=== PATIENT | female | born 1970 | race Two or more races ===

== ENCOUNTER 2023-01-22 12:55 | Emergency (ER) | payer BC, OTHER ==
[~2023-01-22] VITALS: Ht 172.7 cm; Wt 122.7 kg
[2023-01-22 13:27] VITALS: PULSE 90; RESP 18; O2SAT 99
[2023-01-22] MEDS ORDERED: CLINDAMYCIN 900MG IV 50 ML IV ONE (13:30)
[2023-01-22] MEDS ORDERED: SODIUM CHLORIDE 0.9% 500 ML IV ONE (13:30)
[2023-01-22] MEDS ORDERED: METOCLOPRAMIDE HCL 5MG/ml INJ 2ml VIAL IV ONE (13:30)
[2023-01-22] MEDS ORDERED: HYDROmorphone HCL 2 MG/ML VL/or syr IV ONE (13:30)
[2023-01-22] MEDS ORDERED: SODIUM CHLORIDE 0.9% 1,000 ML IV ONE (13:30)
[2023-01-22] MEDS ORDERED: LIDOCAINE 2%HCL (LOCAL ANESTH.) INJ 20ML MDV ID ONE (13:45)
[2023-01-22] MEDS ORDERED: TETANUS-DIPTH-ACEL PERTUSSIS 0.5ML SYR Tdap IM ONE (13:45)
[2023-01-22] MEDS ORDERED: BACITRACIN TOP OINT 1 UD PKG TOP ONE ×2 (13:45→20:15)
[2023-01-22 14:05] LABS: Basophils # (auto) 0.1 10 ^3/uL (0-0.2); Basophils % (auto) 0.4 % (0.0-2.0); Eosinophils # (auto) 0.1 10 ^3/uL (0-0.8); Eosinophils % (auto) 0.6 % (0.0-7.0); Hematocrit 42.2 % (36.0-46.0); Hemoglobin 13.9 g/dL (12.2-16.2); Lymphocytes # (auto) 2.2 10 ^3/uL (0.4-5.4); Lymphocytes % (auto) 14.3 % (10.0-50.0); Mean Corpuscular Hemoglobin 29.3 pg (28.0-32.0); Mean Corpuscular Hgb Conc. 32.9 g/dL (32.0-36.0); Mean Corpuscular Volume 89.1 fL (80.0-100.0); Monocytes # (auto) 0.9 10 ^3/uL (0-1.3); Neutrophils # (auto) 11.9 10 ^3/uL (1.6-8.6); Neutrophils % (auto) 78.7 % (37.0-80.0); Red Blood Cells 4.74 10^6/uL (4.0-5.20); White Blood Cell 15.1 10^3/uL (4.4-10.8)
[2023-01-22 14:22] LABS: Alanine Aminotransferase 14 U/L (7-40); Alkaline Phosphatase 84 U/L (46-116); Anion Gap 8 (5-15); Aspartate Aminotransferase 15 U/L (13-40); BUN/Creatinine Ratio 22.2 (10.0-20.0); Blood Urea Nitrogen 16 mg/dL (9-23); Calcium 9.6 mg/dL (8.7-10.4); Carbon Dioxide 25 mmol/L (20-30); Chloride 102 mmol/L (98-107); Glucose 97 mg/dL (74-106); Magnesium 1.9 mg/dL (1.6-2.6); Potassium 3.8 mmol/L (3.5-5.1); Sodium 135 mmol/L (136-145)
[2023-01-22 14:23] LABS: Bilirubin, Total 0.4 mg/dL (0.2-1.0); Total Protein 8.1 g/dL (5.7-8.2)
[2023-01-22] MEDS ORDERED: LIDOCAINE 2%HCL (LOCAL ANESTH.) INJ 10ml MDV IJ ONE (16:30)
[2023-01-22] MEDS ORDERED: LIDOCAINE 2%HCL (LOCAL ANESTH.) INJ 20ML MDV ONE (16:48)
[2023-01-22] MEDS ORDERED: CEFD300C2 PO ×3 (18:22→18:26)
[2023-01-22] MEDS ORDERED: HYDR1TAB97 PO ×3 (18:22→18:26)
[2023-01-22] MEDS ORDERED: DICL50TA2 PO ×3 (18:22→18:26)
[2023-01-22 20:45] VITALS: PULSE 80; RESP 16; O2SAT 98
[2023-01-22 21:05] VITALS: BP 144/79; PULSE 79; RESP 16; TEMP 97.9; O2SAT 94
== END 2023-01-22 21:23 | disposition home or self-care (01) ==
LOC: ER 12:55 → EDBD 12:55 → ER 21:23
DX: S81.011A Laceration without foreign body, right knee, initial encounter (principal); I10 Essential (primary) hypertension; F15.90 Other stimulant use, unspecified, uncomplicated; Z98.890 Other specified postprocedural states; Z79.899 Other long term (current) drug therapy; W55.49XA Other contact with pig, initial encounter; Y93.89 Activity, other specified; Y92.89 Other specified places as the place of occurrence of the external cause; Y99.8 Other external cause status
CPT/HCPCS: 12046; 36415; 73700; 80053; 83735; 85025; 90715; 96365; 96372; 96375; 99285; J1170; J2001; J2765; J3490; J7040

== ENCOUNTER 2023-02-05 10:48 | Emergency (ER) | payer SELFPAY ==
[~2023-02-05] VITALS: Ht 172.7 cm; Wt 119.7 kg
[~2023-02-05 10:48] MED LIST: CEFD300C2 PO; DICL50TA2 PO; HYDR1TAB97 PO
[2023-02-05 11:14] VITALS: BP 134/79; PULSE 89; RESP 16; TEMP 98.2; O2SAT 96
[2023-02-05] MEDS ORDERED: CEPH500C PO (11:29)
[2023-02-05] MEDS ORDERED: cefTRIAXone SOD 1,000 MG VL IM ONE (11:30)
== END 2023-02-05 11:41 | disposition home or self-care (01) ==
LOC: ER 10:48
DX: S81.811D Laceration without foreign body, right lower leg, subsequent encounter (principal); I10 Essential (primary) hypertension; F12.10 Cannabis abuse, uncomplicated; X58.XXXD Exposure to other specified factors, subsequent encounter
CPT/HCPCS: 96372; 99283; J0696

== ENCOUNTER 2023-02-13 13:37 | Emergency (ER) | payer SELFPAY ==
[~2023-02-13] VITALS: Ht 172.7 cm; Wt 119.2 kg
[~2023-02-13 13:37] MED LIST changes: +CEPH500C PO
[2023-02-13] MEDS ORDERED: BACITRACIN-POLYMYXIN B TOPICAL OINT UD TOP ONE (16:45)
[2023-02-13] MEDS ORDERED: IBUP1TAB5 PO (17:08)
[2023-02-13] MEDS ORDERED: CLIN300C70 PO (17:08)
[2023-02-13] MEDS ORDERED: MUPI2OIN2 EX (17:08)
[2023-02-13] MEDS ORDERED: AMPICILLIN & SULBACTAM SODIUM 3 GM in SODIUM CHL 0.9% 100 ML IV ONE (17:15)
[2023-02-13 18:59] VITALS: BP 138/90; PULSE 86; RESP 16; TEMP 98; O2SAT 98
== END 2023-02-13 19:02 | disposition home or self-care (01) ==
LOC: ER 13:37
DX: S81.011D Laceration without foreign body, right knee, subsequent encounter (principal); B99.9 Unspecified infectious disease; F12.10 Cannabis abuse, uncomplicated; I10 Essential (primary) hypertension; X58.XXXD Exposure to other specified factors, subsequent encounter
CPT/HCPCS: 96365

== ENCOUNTER 2023-02-15 11:31 | Emergency (ER) | payer SELFPAY ==
[~2023-02-15] VITALS: Ht 172.7 cm; Wt 121.0 kg
[~2023-02-15 11:31] MED LIST changes: +CLIN300C70 PO; +IBUP1TAB5 PO; +MUPI2OIN2 EX
[2023-02-15 12:16] VITALS: BP 146/89; PULSE 88; RESP 18; TEMP 97.3; O2SAT 99
== END 2023-02-15 13:33 | disposition home or self-care (01) ==
LOC: ER 11:31
DX: S81.811D Laceration without foreign body, right lower leg, subsequent encounter (principal); I10 Essential (primary) hypertension; F15.90 Other stimulant use, unspecified, uncomplicated; Z48.00 Encounter for change or removal of nonsurgical wound dressing; Z79.899 Other long term (current) drug therapy; X58.XXXD Exposure to other specified factors, subsequent encounter

== ENCOUNTER → 2024-11-20 | Day surgery (SDC) | payer MEDICAID ==
[~2024-11-20] VITALS: Ht 170.2 cm; Wt 123.8 kg
[~2024-11-20] MED LIST changes: +BACL20TA PO; +BUPIVACAINE 0.25% INJ 50ML VIAL ONE; -CEFD300C2 PO; -CEPH500C PO; -CLIN300C70 PO; -DICL50TA2 PO; +HYDROmorphone HCL 2 MG/ML VL/or syr ONE; -IBUP1TAB5 PO; +KETOROLAC TROMETH 30 MG/ML 1ML VIAL ONE; +LIDOCAINE 2% (LOCAL ANESTH.) PF 5ml SDV ONE; +LIDOCAINE W/ EPINEPHRINE 1% 20ML VIAL ONE; +LOSA-534 PO; +METOCLOPRAMIDE HCL 5MG/ml INJ 2ml VIAL ONE; +MIDAZOLAM HCL 2MG/2ML 2ml VIAL (1mg/ml) ONE; -MUPI2OIN2 EX; +ONDANSETRON HCL 4 MG/2 ML VIAL IV PRN; +ONDANSETRON HCL 4 MG/2 ML VIAL ONE; +PROPOFOL 10 MG/ML 20 ML IV ONE; +TRAM50TA2 PO; +fentaNYL CITRATE 100 MCG/2 ML VL ONE; +hydrALAZINE HCL 20 MG/ML VL IV PRN
[2024-11-20] MEDS: ceFAZolin 2 GM/D5W50ml 50 ML IV ONE (09:14)
[2024-11-20] MEDS: ROPIVACAINE 0.5% (5MG/ML) 20ML AMPULE IJ ONE (09:44)
--- NOTE | 2024-11-20 10:21 | DVHOP2 ---
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 These include but are not limited to complications of anesthesia, postoperative infection, incomplete relief of symptoms, recurrence of symptoms, damage to blood vessels, nerves and tendons, deep venous thrombosis, pulmonary embolism and possible need for repeat surgery in the future. Complications: None Estimated Blood Loss: Less than 5 cc Fluids: See anesthesia record Findings: Morbid obesity, normal passive range of motion, no instability, arthroscopically she had a small grade 4 lesion at the lateral trochlea, mild synovitis, grade 3 change to medial femoral condyle with degenerative medial meniscus tear, ACL and PCL were intact, grade 3 change chondromalacia lateral compartment with degenerative tear of the anterior horn and body of the lateral meniscus Indications for Surgery: Right knee pain and mechanical symptoms despite nonoperative management and inadequate disease burden to recommend knee replacement Name of Procedure Performed Right knee arthroscopy, partial medial and lateral meniscectomy Procedure Details Procedure Details: Patient was brought to the operating room placed on table supine position. General anesthetic was given. 2 g IV Ancef were given. Examination under anesthesia performed. Operative lower extremity was prepped and draped in sterile fashion. Surgical timeout was performed verifying patient, laterality, and procedure. I injected 10 cc of 0.5% ropivacaine intra-articularly and at the portal sites. Extremity was elevated, exsanguinated with Esmarch and tourniquet inflated to 250 mm Hg. [] I then made inferior lateral portal in usual fashion and entered the joint with blunt cannula and trocar. I began my inspection of the supra suprapatellar recess patellofemoral compartment medial gutter and the medial compartment. I placed inferior medial portal utilizing a spinal needle for guidance. I inspected and probed the structures identifying the meniscus tear. The tear was debrided to a stable margin with biters and fanny which was verified with probing. During the procedure I shaved synovium to improve visualization. I then shaved some fat pad to improve visualization in the notch then inspected and probed ligaments which were intact. I checked the lateral compartment in the [id number] position and again probed the s tructures with tear as described. Debrided to a stable margin with biters and Fanny and verified with the probing. Again, I shaved synovium to improve visualization.. I inspected the lateral gutter and brought my attention back to the patellofemoral compartment. I shaved inflamed synovium in the suprapatellar pouch. I irrigated and suctioned several times to remove particular debris. I then suctioned the joint as dry as possible. I injected the remaining 10 cc of 0.5% ropivacaine intra-articularly. Portal sites were closed with Steri-Strips. The wounds were dressed sterilely. Patient tolerated the procedure well and was brought to the recovery room in stable condition. Condition Stable Disposition Home PIETER PARIKH MD Nov 20, 2024 10:21
[2024-11-20 10:27] VITALS: PULSE 69; RESP 7; TEMP 97.3; O2SAT 97
[2024-11-20 10:45] VITALS: PULSE 69; RESP 10; O2SAT 99
[2024-11-20] MEDS: HYDROmorphone HCL 2 MG/ML VL/or syr IV PRN (11:01)
[2024-11-20 11:42] VITALS: BP 142/85; PULSE 76; RESP 14; O2SAT 97
== END | disposition home or self-care (01) ==
LOC: SUR 08:21
PROVIDERS: ATTEND Orthopaedic Surgery
DX: S83.281A Other tear of lateral meniscus, current injury, right knee, initial encounter (principal); S83.231A Complex tear of medial meniscus, current injury, right knee, initial encounter; M17.11 Unilateral primary osteoarthritis, right knee; E66.01 Morbid (severe) obesity due to excess calories; M65.861 Other synovitis and tenosynovitis, right lower leg; M94.261 Chondromalacia, right knee; X58.XXXA Exposure to other specified factors, initial encounter; Y93.89 Activity, other specified; Y92.89 Other specified places as the place of occurrence of the external cause; Y99.8 Other external cause status; F41.9 Anxiety disorder, unspecified
CPT/HCPCS: 29880; 81025; J0169; J0690; J1100; J1171; J1885; J2003; J2250; J2405; J2704; J2765; J2795; J3010; J3490

== ENCOUNTER → 2025-01-02 | Day surgery (SDC) | payer MEDICAID ==
[~2025-01-02] VITALS: Ht 170.2 cm; Wt 124.7 kg
[~2025-01-02] MED LIST changes: +ACETAMINOPHEN IV 1000 MG/100ML (10MG/ML) IV PRN; +AML5T PO; -BUPIVACAINE 0.25% INJ 50ML VIAL ONE; +BUPIVACAINE HCL 0 ML ONE; +BUPIVACAINE W/ EPINEPH 0.5% INJ 50ML MDV IJ ONE; +GABA-1308 PO; +HYDR10SY18 PO; +HYDROmorphone HCL 2 MG/ML VL/or syr IV PRN; -KETOROLAC TROMETH 30 MG/ML 1ML VIAL ONE; -LIDOCAINE 2% (LOCAL ANESTH.) PF 5ml SDV ONE; -LIDOCAINE W/ EPINEPHRINE 1% 20ML VIAL ONE; +LOSA100T25 PO; -METOCLOPRAMIDE HCL 5MG/ml INJ 2ml VIAL ONE; -MIDAZOLAM HCL 2MG/2ML 2ml VIAL (1mg/ml) ONE; +OXYB5TAB14 PO; +ROPIVACAINE 0.5% (5MG/ML) 20ML AMPULE IJ ONE; +SUMA1SPR2; -TRAM50TA2 PO; +TRAZ-228 PO; +VORT10TA PO; +fentaNYL CITRATE 100 MCG/2 ML VL IV PRN; -hydrALAZINE HCL 20 MG/ML VL IV PRN
[2025-01-02] MEDS: ceFAZolin 2 GM/D5W50ml 50 ML IV ONE (09:37)
[2025-01-02] MEDS: ROPIVACAINE 0.5% (5MG/ML) 20ML AMPULE IJ ONE (09:55)
--- NOTE | 2025-01-02 10:44 | DVHOP2 ---
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 These include but are not limited to complications of anesthesia, postoperative infection, incomplete relief of symptoms, recurrence of symptoms, damage to blood vessels, nerves and tendons, deep venous thrombosis, pulmonary embolism and possible need for repeat surgery in the future. Complications: None Estimated Blood Loss: Less than 5 cc Fluids: See anesthesia record Findings: Patient had moderate to severe synovitis all three compartments, she had grade 4 chondromalacia for the majority of the trochlea and patella, she had a focal medial femoral condyle chondromalacia grade 4 about 5 mm x 1 cm and a similar size focal grade 4 lesion on the lateral condyle as well as a complex degenerative tear of both the medial and lateral meniscus Indications for Surgery: Left knee pain and functional impairment with confirmed a medial meniscus tear and failed nonoperative management Name of Procedure Performed 1. Left knee arthroscopic partial medial and lateral meniscectomy 2. Left knee three compartment synovectomy 3. Left knee medial femoral condyle and lateral femoral condyle microfracture arthroplasty Procedure Details Procedure Details: Patient was brought to the operating room and placed on the table in supine position. Patient was given IV Ancef and general anesthetic. Examination under anesthesia performed with no evidence of instability and normal range of motion. Left lower extremity was prepped and draped in sterile fashion. Surgical time- out was performed verifying patient, laterality, and procedure. I injected 10 cc of 0.5% ropivacaine into the portal sites and intra-articularly. I made inferolateral portal in the usual fashion and entered the joint with blunt cannula and trocar. I began my inspection 1st of the suprapatellar recess patellofemoral compartment, medial gutter then medial compartment. I placed inferior medial portal utilizing spinal needle for guidance. I inspected and probed the structures. I used shaver to perform synovectomy. I used a probe to identify the tear. The tear was then debrided to a stable margin using biters and Xenia and verified with the probing. I identified the focal grade 4 lesi on. I shaved the based as well as using a curette to scrape the base. I then used the microfracture awl to punch holes in verify bleeding. I then brought my attention to the notch and inspected and probed the ligaments after shaving ligamentum mucosa and synovium. There was osteophytic overgrowth in the notch. I then examined the lateral compartment in the figure 4 position then used shaver to perform synovectomy. I identified the complex degenerative tear which was debrided to a stable margin with biters and Xenia. Stability verified with probing. I switched visualization and instrumentation portals. I identified the grade 4 lesion which I shaved and scraped the base of the lesion with a curette. I then used the microfracture awl to punch holes and verify bleeding. I switched the instrumentation visualization portals again. I then brought my attention back to the patellofemoral compartment where I performed synovectomy of the entire patellofemoral compartment. I then irrigated and suctioned several times to remove particulate debris. I suctioned the joint as dry as possible. I injected the remaining 10 cc of 0.5% ropivacaine. Portal sites were closed with Steri-Strips and wound dressed sterilely. Patient tolerated the procedure well was brought to recovery room in stable condition. Condition Stable Disposition Home PIETER PARIKH MD Jan 02, 2025 10:44
[2025-01-02 10:46] VITALS: PULSE 80; RESP 12; TEMP 97
[2025-01-02] MEDS: HYDROmorphone HCL 2 MG/ML VL/or syr IV PRN (11:23)
[2025-01-02] MEDS: ACETAMINOPHEN IV 1000 MG/100ML (10MG/ML) IV ONE (11:24)
[2025-01-02 12:05] VITALS: BP 132/78; PULSE 76; RESP 12; O2SAT 96
== END | disposition home or self-care (01) ==
LOC: SUR 08:04
PROVIDERS: ATTEND Orthopaedic Surgery
DX: S83.282A Other tear of lateral meniscus, current injury, left knee, initial encounter (principal); S83.242A Other tear of medial meniscus, current injury, left knee, initial encounter; M17.12 Unilateral primary osteoarthritis, left knee; M65.862 Other synovitis and tenosynovitis, left lower leg; M22.42 Chondromalacia patellae, left knee; I10 Essential (primary) hypertension; F41.9 Anxiety disorder, unspecified; F32.A Depression, unspecified; G43.909 Migraine, unspecified, not intractable, without status migrainosus; Z79.899 Other long term (current) drug therapy; E66.9 Obesity, unspecified; Z68.41 Body mass index [BMI] 40.0-44.9, adult
CPT/HCPCS: 29876; 29879; 29880; J0169; J0690; J1100; J1171; J2405; J2704; J2795; J3010; J0131; J3490